=== PATIENT | male | born 1985 | race Hispanic/Latino ===

== ENCOUNTER 2019-05-13 00:06 | Inpatient (IN) | payer OTHER ==
[~2019-05-13] VITALS: Ht 157.5 cm; Wt 90.1 kg
[2019-05-13] MEDS ORDERED: MORPHINE SULFATE 4 MG/1ML SYG ONE (01:07)
[2019-05-13] MEDS ORDERED: KETOROLAC TROMETHAMINE 30MG/ML ONE (01:07)
[2019-05-13] MEDS ORDERED: SODIUM CHLORIDE 0.9% 1000ML 1,000 ML IV ONE (01:09)
[2019-05-13 01:34] LABS: BASOPHILS % (AUTO) 0.4 % (0.0-5.0); EOSINOPHILS % (AUTO) 0.8 % (0.0-8.0); HEMATOCRIT 41.3 % (42-54); LYMPHOCYTES % (AUTO) 14.5 % (21.0-51.0); MEAN CORPUSCULAR HEMOGLOBIN 29.2 pg (27.0-33.0); MEAN CORPUSCULAR HGB CONC 35.4 g/dL (32.0-36.0); MEAN CORPUSCULAR VOLUME 82.6 fL (79-99); MONOCYTES % (AUTO) 7.3 % (3.0-13.0); NEUTROPHILS % (AUTO) 76.4 % (40.0-77.0); PLATELET COUNT (AUTO) 234 K/uL (130-400); RED CELL DISTRIBUTION WIDTH 12.3 % (11.0-15.5); WHITE BLOOD COUNT (AUTO) 18.5 K/uL (4.8-10.8)
[2019-05-13 01:48] LABS: CREATININE 1.2 mg/dL (0.5-1.5); POTASSIUM 3.4 mmol/L (3.5-5.1)
[2019-05-13] MEDS ORDERED: ZOSYN 3.375GM+NS 50ML 50 ML IV ONE (02:45)
[2019-05-13] MEDS ORDERED: VANCOMYCIN 1GM+NS 250ML 500 ML IV ONE (02:45)
[2019-05-13] MEDS ORDERED: INSULIN HUMULIN R 100 UNIT/ML 3ML ONE (02:46)
[2019-05-13] MEDS ORDERED: GLUCAGON 1MG KIT 1 MG ML IM PRN (03:15)
[2019-05-13] MEDS ORDERED: DEXTROSE 50%-WATER 50 ML DISP.SYRIN IV PRN (03:15)
[2019-05-13] MEDS ORDERED: ACETAMINOPHEN 325 MG TAB PO PRN (03:15)
[2019-05-13] MEDS ORDERED: ONDANSETRON HCL 4 MG/2 ML VIAL IVP PRN (03:15)
[2019-05-13] MEDS ORDERED: VANCOMYCIN PROTOCOL PER PHARMACY IV SCH (03:15)
[2019-05-13] MEDS ORDERED: VANCOMYCIN IV SCH (03:30)
[2019-05-13] MEDS ORDERED: SODIUM CHLORIDE 0.9% IV SCH (03:30)
[2019-05-13] MEDS ORDERED: ACETAMINOPHEN 325 MG TAB ONE (03:50)
[2019-05-13 03:58] VITALS: BP 111/82
--- NOTE | 2019-05-13 04:00 | NUR ---
Admission note: Admitted to floor per stretcher from ED. Pt. fully awake and responsive. Placed in bed comfortably. VS checked and recorded. Physical assessment done. ( See CPOE flow chart for full assessment). Oriented to room and used of call light. Policies and procedures explained. Agreed and verbalized understanding. Has IV site to RFA # 20 gauge with Vancomycin 1.5 gm at a rate of 200 ml/hr via dial flow- patent and intact. Photo of the wound taken and attached to chart. Denies feeling of pain at this time. Verbalized pain felt when he starts to ambulate. Home meds list to bring later by spouse. Plan of care initiated. Monitored for any unusual changes. Needs attended and cared for. Endorsed accordingly to Day shift RN.
[2019-05-13] MEDS ORDERED: ZOSYN 3.375GM+NS 50ML 50 ML IV SCH (05:00)
[2019-05-13] MEDS: INSULIN R PO SS1 SQ SCH ×4 (06:45→20:32)
[2019-05-13 08:00] VITALS: BP 100/58
[2019-05-13] MEDS: FAMOTIDINE 20MG TAB 20 MG TAB PO SCH ×2 (09:16→20:02)
[2019-05-13] MEDS: ZOSYN 3.375GM+NS 50ML 50 ML IV SCH ×2 (09:23→17:25)
[2019-05-13] MEDS: ACETAMINOPHEN 325 MG TAB PO PRN ×3 (09:33→23:11)
[2019-05-13 12:00] VITALS: BP 106/72
[2019-05-13] MEDS ORDERED: COMPOUND IV REFRIGERATED 1 EACH IVSOLN MISC PRN (12:30)
[2019-05-13] MEDS: SODIUM CHLORIDE 0.9% IV SCH (15:01)
[2019-05-13] MEDS: VANCOMYCIN IV SCH (15:01)
[2019-05-13 16:00] VITALS: BP 117/74
--- NOTE | 2019-05-13 16:22 | NUR ---
RD Notification Pt admitted with Cellulitis to both legs. [facility] Diabetes. Pt with elevated BG levels (305).Pt pending I&D procedure. Pt in shower at time of visit. Pending diabetes nutrition education. Recommend 60gm CCD secondary to elevated BG levels. Pt with Obesity class II (BMI 36.0). RD to continue to monitor. Please notify RD as additional nutrition concerns arise. Thank you. Addendum: 05/13/19 at [address] RD Amended: Links added.
[2019-05-13 19:25] VITALS: BP 98/54
[2019-05-13] MEDS: HYDROMORPHONE HCL 0.5 MG/0.5 ML ML IVP PRN (20:09)
[2019-05-14] VITALS (29 sets, daily range): BP systolic 95–139; BP diastolic 47–88
[2019-05-14] MEDS: ZOSYN 3.375GM+NS 50ML 50 ML IV SCH ×3 (01:15→19:45)
[2019-05-14] MEDS: VANCOMYCIN IV SCH (03:30)
[2019-05-14] MEDS: SODIUM CHLORIDE 0.9% IV SCH (03:30)
[2019-05-14] MEDS: HYDROMORPHONE HCL 0.5 MG/0.5 ML ML IVP PRN ×2 (03:30→20:55)
[2019-05-14 05:40] LABS: HEMATOCRIT 33.7 % (42-54); MEAN CORPUSCULAR HEMOGLOBIN 29.4 pg (27.0-33.0); MEAN CORPUSCULAR HGB CONC 35.3 g/dL (32.0-36.0); MEAN CORPUSCULAR VOLUME 83.2 fL (79-99); PLATELET COUNT (AUTO) 213 K/uL (130-400); RED BLOOD CELL COUNT(AUTO) 4.05 MIL/uL (4.50-6.20); RED CELL DISTRIBUTION WIDTH 12.6 % (11.0-15.5); WHITE BLOOD COUNT (AUTO) 14.1 K/uL (4.8-10.8)
[2019-05-14 05:44] LABS: HEMOGLOBIN A1C 6.4 % (4.0-6.0)
[2019-05-14 05:50] LABS: ALBUMIN 2.2 g/dL (3.5-5.0); BILIRUBIN,TOTAL 0.5 mg/dL (0.2-1.0); CREATININE 1.2 mg/dL (0.5-1.5); MAGNESIUM 1.5 mg/dL (1.80-2.40); POTASSIUM 3.5 mmol/L (3.5-5.1); THYROID STIMULATING HORMONE 0.71 uIU/mL (0.36-3.74); TOTAL PROTEIN, SERUM 6.1 g/dL (6.0-8.3)
[2019-05-14] MEDS: INSULIN R PO SS1 SQ SCH ×4 (06:07→20:54)
[2019-05-14 06:18] LABS: BAND NEUTROPHILS % (MANUAL) 7 % (0-2); EOSINOPHILS % (MANUAL) 1 % (1-6); LYMPHOCYTES % (MANUAL) 20 % (22-44); MAN.DIFF COMMENT-IMPRESSION MANUAL DIFFERENTIAL; MONOCYTES % (MANUAL) 9 % (2-9); PLATELET MORPHOLOGY COMMENT ADEQUATE; REACTIVE LYMPHOCYTES 2 % (0-0); SEGMENTED NEUTROPHILS % 61 % (40-70)
[2019-05-14] MEDS: FAMOTIDINE 20MG TAB 20 MG TAB PO SCH ×2 (09:16→20:38)
[2019-05-14] MEDS ORDERED: SODIUM CHLORIDE 0.9% 1000ML 1,000 ML IV ONE (12:58)
--- NOTE | 2019-05-14 13:09 | NUR ---
potential for infection: shaved left axillary area per shadi colón.
[2019-05-14] MEDS ORDERED: MIDAZOLAM HCL 1 MG/ML 2ML VIAL ONE (13:16)
[2019-05-14] MEDS ORDERED: FENTANYL CITRATE PF 50 MCG/1 ML 2ML VIAL ONE ×2 (13:16→15:58)
[2019-05-14] MEDS ORDERED: LIDOCAINE PF 2% 5ML ABBOJECT ONE (13:16)
[2019-05-14] MEDS ORDERED: PROPOFOL 10 MG/ML 20ML VIAL IV ONE (13:16)
[2019-05-14] MEDS ORDERED: ROPIVACAINE 0.5% 5MG/ML 30ML IJ ONE (14:03)
[2019-05-14] MEDS ORDERED: KETOROLAC TROMETHAMINE 30MG/ML ONE ×2 (15:58→16:11)
--- NOTE | 2019-05-14 16:58 | NUR ---
unable to assess SW attempted to complete assessment with patient but he was in a procedure. SW will follow up at a later time.
[2019-05-14] MEDS: VANCOMYCIN 1.25 GM in SODIUM CHLORIDE 0.9% 250 ML IV SCH (17:05)
[2019-05-14] MEDS ORDERED: GLYB5TAB8 PO (22:21)
[2019-05-14] MEDS ORDERED: METF-444 PO (22:23)
[2019-05-14] MEDS ORDERED: LISI10TA7 PO (22:23)
[2019-05-15] MEDS: ACETAMINOPHEN 325 MG TAB PO PRN (01:47)
[2019-05-15] MEDS: ZOSYN 3.375GM+NS 50ML 50 ML IV SCH ×3 (01:48→17:44)
[2019-05-15] MEDS: HYDROMORPHONE HCL 0.5 MG/0.5 ML ML IVP PRN ×3 (03:02→17:57)
[2019-05-15 03:16] LABS: HEMATOCRIT 32.3 % (42-54); MEAN CORPUSCULAR HEMOGLOBIN 29.1 pg (27.0-33.0); MEAN CORPUSCULAR HGB CONC 34.4 g/dL (32.0-36.0); MEAN CORPUSCULAR VOLUME 84.6 fL (79-99); PLATELET COUNT (AUTO) 214 K/uL (130-400); RED BLOOD CELL COUNT(AUTO) 3.82 MIL/uL (4.50-6.20); RED CELL DISTRIBUTION WIDTH 12.3 % (11.0-15.5); WHITE BLOOD COUNT (AUTO) 9.5 K/uL (4.8-10.8)
[2019-05-15 03:24] LABS: CREATININE 1.2 mg/dL (0.5-1.5); POTASSIUM 3.3 mmol/L (3.5-5.1)
[2019-05-15 03:39] LABS: BAND NEUTROPHILS % (MANUAL) 7 % (0-2); BASOPHILS % (MANUAL) 1 % (0-2); EOSINOPHILS % (MANUAL) 2 % (1-6); LYMPHOCYTES % (MANUAL) 26 % (22-44); MAN.DIFF COMMENT-IMPRESSION MANUAL DIFFERENTIAL; MONOCYTES % (MANUAL) 6 % (2-9); SEGMENTED NEUTROPHILS % 58 % (40-70)
[2019-05-15 04:00] VITALS: BP 112/73
[2019-05-15] MEDS: VANCOMYCIN 1.25 GM in SODIUM CHLORIDE 0.9% 250 ML IV SCH ×2 (04:25→15:34)
[2019-05-15] MEDS: INSULIN R PO SS1 SQ SCH ×4 (06:04→21:27)
[2019-05-15 08:04] VITALS: BP 106/66
[2019-05-15] MEDS: FAMOTIDINE 20MG TAB 20 MG TAB PO SCH ×2 (09:25→21:20)
--- NOTE | 2019-05-15 12:30 | NUR ---
PT STATES PAIN IS NOT CONTROLLED PA MANSOOR NOTIFIED ORDERS ENTERED. STATES PATIENT NEEDS 1 OR 2 MORE DAYS OF ANTIBIOTICS DUE TO SWELLING AND PAIN.
--- NOTE | 2019-05-15 12:36 | NUR ---
INITIAL Patient lives alone. Emergency contact is mother, Nishi Sams, [phone]. No home services or DME. Patient is able to complete ADL's independently and drives. 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 PCP is Dr. Hyman. Pharmacy is [facility] in [place]. DCP is home. Addendum: 05/15/19 at 1238 by JULIO LOPES SS Amended: Links added.
[2019-05-15 12:37] VITALS: BP 116/82
[2019-05-15] MEDS: TRAMADOL HCL 50 MG TABLET PO PRN (15:37)
[2019-05-15 16:51] VITALS: BP 125/73
--- NOTE | 2019-05-15 18:35 | NUR ---
dressings to bilateral thighs changed could not change axillary due to severe pain. will notify next shift pending to change for tonight. Addendum: 05/15/19 at 1838 by WESTON CORTES RN RN using wet to dry and sterile technique.
[2019-05-15 19:53] VITALS: BP 128/74
[2019-05-15] MEDS ORDERED: POTASSIUM CHLORIDE 20 MEQ ERTAB PO SCH (20:00)
[2019-05-15] MEDS ORDERED: MAGNESIUM 2GM PREMIX 50ML 50 ML IV SCH (21:00)
[2019-05-15 23:20] VITALS: BP 120/68
[2019-05-16] MEDS: HYDROMORPHONE HCL 0.5 MG/0.5 ML ML IVP PRN (00:35)
[2019-05-16] MEDS: ZOSYN 3.375GM+NS 50ML 50 ML IV SCH ×3 (01:06→19:20)
[2019-05-16 03:48] LABS: MEAN CORPUSCULAR HEMOGLOBIN 28.9 pg (27.0-33.0); MEAN CORPUSCULAR HGB CONC 33.8 g/dL (32.0-36.0); MEAN CORPUSCULAR VOLUME 85.6 fL (79-99); PLATELET COUNT (AUTO) 241 K/uL (130-400); RED BLOOD CELL COUNT(AUTO) 3.74 MIL/uL (4.50-6.20); RED CELL DISTRIBUTION WIDTH 12.2 % (11.0-15.5)
[2019-05-16 04:00] VITALS: BP 100/57
[2019-05-16 04:00] LABS: CREATININE 1.2 mg/dL (0.5-1.5); MAGNESIUM 2.3 mg/dL (1.80-2.40); POTASSIUM 3.7 mmol/L (3.5-5.1)
[2019-05-16] MEDS: VANCOMYCIN 1.25 GM in SODIUM CHLORIDE 0.9% 250 ML IV SCH ×2 (04:00→16:41)
[2019-05-16] MEDS: INSULIN R PO SS1 SQ SCH ×4 (06:38→21:10)
[2019-05-16 08:15] VITALS: BP 123/77
[2019-05-16] MEDS: FAMOTIDINE 20MG TAB 20 MG TAB PO SCH ×2 (08:39→21:06)
[2019-05-16] MEDS: TRAMADOL HCL 50 MG TABLET PO PRN ×3 (08:39→21:07)
[2019-05-16 11:14] VITALS: BP 104/70
--- NOTE | 2019-05-16 11:25 | NUR ---
Nutrition Follow-up: Pt. S/P I&D L7R Thigh/L Axillary monor abscess(05/14/2019). Pt. on 60gm CCD diet, double pro/Veg portions with good p.o. intake, as per pt. Labs reviewed(Alb 2.2, BG 201). Spoke with pt. regarding protein supplementation and pt. agreed to try. LBM: 05/15/2019. Pt. educated on Diabetic diet and provided with education material. Pt. verbalized understanding. Recommendations: 1) Continue current diet. 2) Rec. 30ml ProMod TID with meals. 3) Diabetic diet education given to patient. 4) Continue to monitor pt's nutritional status. 5) Consult RD as nutrition concerns arise. Addendum: 05/16/19 at [address] Amended: Links added.
--- NOTE | 2019-05-16 16:00 | NUR ---
SPOKE TO DR. HARDING, PT , RN AT BEDSIDE RE DSG CHANGES. PT HAS [employer] INSURANCE, NOT ABLE TO VERIFY BENEFITS FOR HH ON THE WEEKEND. TWO OPTIONS- TEACH FMA[employer] TO DO DRESSING, DC HOME SATURDAY TO FOLLOW WITH PRIMARY MD ON SATURDAY, OR DC SATURDAY AFTER BENEFITS VERIFIED. POSSIBLE THIS INSURANCE REQUIRES PMD TO REFER. CM TO FOLLOW. UNABLE TO SET UP TODAY Addendum: 05/17/19 at 0804 by KILLIAN KENNEY RN CM Amended: Links added.
[2019-05-16 16:26] VITALS: BP 129/53
[2019-05-16] MEDS: METFORMIN HCL 500 MG TABLET PO SCH (16:41)
[2019-05-16] MEDS: ACETAMINOPHEN-CODEINE 300/30MG TAB PO PRN ×2 (16:52→22:15)
[2019-05-16 19:42] VITALS: BP 102/58
[2019-05-16] MEDS: GLYBURIDE 5 MG TABLET PO SCH (21:06)
[2019-05-16 23:30] VITALS: BP 110/68
[2019-05-17] MEDS: ZOSYN 3.375GM+NS 50ML 50 ML IV SCH ×3 (01:56→18:12)
[2019-05-17 03:27] VITALS: BP 102/66
[2019-05-17] MEDS: TRAMADOL HCL 50 MG TABLET PO PRN ×3 (05:56→20:28)
[2019-05-17] MEDS: VANCOMYCIN 1.25 GM in SODIUM CHLORIDE 0.9% 250 ML IV SCH ×2 (05:56→15:47)
[2019-05-17] MEDS: INSULIN R PO SS1 SQ SCH ×4 (06:13→20:27)
[2019-05-17] MEDS: FAMOTIDINE 20MG TAB 20 MG TAB PO SCH ×2 (08:17→20:28)
[2019-05-17] MEDS: METFORMIN HCL 500 MG TABLET PO SCH ×2 (08:17→18:12)
[2019-05-17] MEDS: LISINOPRIL 10 MG TABLET PO SCH (08:17)
[2019-05-17] MEDS: GLYBURIDE 5 MG TABLET PO SCH ×2 (08:17→20:28)
[2019-05-17 08:55] VITALS: BP 104/57
[2019-05-17 11:43] VITALS: BP 124/82
[2019-05-17 16:09] VITALS: BP 119/68
[2019-05-17 20:04] VITALS: BP 141/78
--- NOTE | 2019-05-17 21:00 | NUR ---
DRESSING CHANGE PATIENT AWAKE AND ALERT, MEDICATED PER MARS BEFORE DRESSING CHANGE. DRESSING CHANGE DONE PER MD ORDERS TO BILATERAL THIGHS. SPOUSE AT BEDSIDE EDUCATED ON DRESSING CHANGE. SPOUSE VERBALIZED UNDERSTANDING VIA TEACH BACK. NO QUESTIONS OR CONCERNS VOICED AT THIS TIME. PATIENT TOLERATED WELL. NO SIGNS OF DISTRESS NOTED. CALL LIGHT WITHIN REACH. WILL CONTINUE TO BE OBSERVED. Addendum: 05/18/19 at 0615 by DONTRELL SWENSON RN RN Amended: Links added.
[2019-05-17 23:21] VITALS: BP 129/88
[2019-05-18] MEDS: ZOSYN 3.375GM+NS 50ML 50 ML IV SCH ×3 (01:54→18:13)
[2019-05-18] MEDS: ACETAMINOPHEN-CODEINE 300/30MG TAB PO PRN (02:00)
[2019-05-18 04:44] VITALS: BP 119/79
[2019-05-18] MEDS: VANCOMYCIN 1.25 GM in SODIUM CHLORIDE 0.9% 250 ML IV SCH ×2 (04:52→18:16)
[2019-05-18] MEDS: INSULIN R PO SS1 SQ SCH ×4 (05:17→21:00)
[2019-05-18 05:38] LABS: HEMATOCRIT 34.5 % (42-54); MEAN CORPUSCULAR HEMOGLOBIN 28.9 pg (27.0-33.0); MEAN CORPUSCULAR HGB CONC 33.6 g/dL (32.0-36.0); PLATELET COUNT (AUTO) 277 K/uL (130-400); RED BLOOD CELL COUNT(AUTO) 4.01 MIL/uL (4.50-6.20); RED CELL DISTRIBUTION WIDTH 12.4 % (11.0-15.5); WHITE BLOOD COUNT (AUTO) 7.9 K/uL (4.8-10.8)
[2019-05-18 06:48] LABS: CREATININE 1.1 mg/dL (0.5-1.5); POTASSIUM 3.4 mmol/L (3.5-5.1)
[2019-05-18 08:00] VITALS: BP 106/68
[2019-05-18] MEDS: GLYBURIDE 5 MG TABLET PO SCH ×2 (09:20→21:13)
[2019-05-18] MEDS: FAMOTIDINE 20MG TAB 20 MG TAB PO SCH ×2 (09:20→21:12)
[2019-05-18] MEDS: LISINOPRIL 10 MG TABLET PO SCH (09:20)
[2019-05-18] MEDS: METFORMIN HCL 500 MG TABLET PO SCH ×2 (09:23→18:12)
[2019-05-18 11:53] VITALS: BP 128/62
--- NOTE | 2019-05-18 12:00 | NUR ---
CM NOTE REFERRAL FOR HOME HEALTH FOR WOUND CARE. [employer] CONTACTED THRU EMAIL PER WEBSITE REQUESTING HOME HEALTH IN NETWORK, PENDING RETURN EMAIL. MEET WITH PATIENT IN ROOM, PER PATIENT, HAS LEARNED WOUND CARE AND IS COMFORTABLE WITH FAMILY PERFORMING WOUND CARE. WOUND CARE TAUGHT TO SPOUSE BY DONTRELL LUNDBERG, SPOUSE VERBALIZED UNDERSTANDING OF DRESSING CHANGES. MOTHER AT BEDSIDE, STATES SHE CAN ALSO LEARN AND PERFORM WOUND CARE ORDERED. PER PATIENT, HAS A COUSIN WHO IS AN SERVICE ASSOCIATE THAT HAS ALSO VOLUNTEERED TO PERFORM WOUND CARE. ANSWERED QUESTIONS REGARDING WOUND CARE SUPPLIES CALL PLACED TO DR. ARECHIGA TO INFORM HER OF WOUND CARE TO BE DONE BY FAMILY, PER MD, OK FOR FAMILY TO DO WOUND CARE LONG THEY ARE TAUGHT. PER MD, PATIENT NOT CLEARED TO RETURNTO WORK AND WILL FOLLOW UP IN OFFICE WHERE SUBJECT WILL BE DISCUSSED, THIS REPORTED TO PATIENT, VERBALIZED UNDERSTANDING. PENDING 2DECHO ORDERED BY DR. HARDING. DISPOSITION HOME WITH FAMILY TO DO WOUND CARE.
[2019-05-18 16:00] VITALS: BP 127/72
--- NOTE | 2019-05-18 18:00 | NUR ---
NOTE PATIENT HAS HAD STABLE DAY. CONTINUE WITH IV ABX. 2 D ECHO WAS DONE AND WE ARE PENDING PATIENT TO HAVE RESULTS TO R/O ENDOCARDITIS. DR SUTTON MADE ROUNDS FOR DR ARECHIGA AND LEFT DC ABX TO DR MOYER WHO IS ASSUMING PRIMARY CARE FOR HIM. ECHO REPORT IS OUT AND SEEMS HE WILL NEED ABDELRAHMAN PER RECOMMENDATIONS FOR VEGETATION CANNOT BE RULED OUT. DR MOYER PAGED. WILL INFORM HIM AND GET ORDER.
--- NOTE | 2019-05-18 19:34 | NUR ---
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 SPOKE TO DR ANDRADE REGARDING RESULTS AND HE SAID TO CONTINUE ABX AND NOTIFY DR HARDING IN AM.
[2019-05-18 20:00] VITALS: BP 131/84
[2019-05-18] MEDS: TRAMADOL HCL 50 MG TABLET PO PRN (21:19)
[2019-05-18] MEDS ORDERED: VANCOMYCIN 1.25 GM in SODIUM CHLORIDE 0.9% 250 ML IV SCH (22:00)
[2019-05-18] MEDS ORDERED: VANCOMYCIN 1.5 GM in SODIUM CHLORIDE 0.9% 250 ML IV SCH (22:15)
--- NOTE | 2019-05-18 23:00 | NUR ---
DRESSING CHANGE ( WET TO DRY) Procedure for wet to dry saline dressing change explained to pt. Pt. is agreeable and verbalizes understanding. Medicated with Tramadol 50mg po prn for pain as ordered prior to dressing change. Dressing removed to left axilla and both legs. Scant amount of blood noted. No foul odor noted. Wound has pink granulation tissue present on borders. Wet to dry 4x4's applied to wound using aseptic technique pr MD orders. Patient tolerated procedure well.
[2019-05-18] MEDS ORDERED: VANCOMYCIN PROTOCOL PER PHARMACY IV SCH (23:45)
[2019-05-19] VITALS (13 sets, daily range): BP systolic 101–139; BP diastolic 65–84
[2019-05-19] MEDS: ZOSYN 3.375GM+NS 50ML 50 ML IV SCH ×3 (02:37→21:36)
[2019-05-19 05:47] LABS: HEMATOCRIT 36.4 % (42-54); MEAN CORPUSCULAR HEMOGLOBIN 28.7 pg (27.0-33.0); MEAN CORPUSCULAR HGB CONC 33.8 g/dL (32.0-36.0); MEAN CORPUSCULAR VOLUME 84.8 fL (79-99); PLATELET COUNT (AUTO) 281 K/uL (130-400); RED BLOOD CELL COUNT(AUTO) 4.29 MIL/uL (4.50-6.20); RED CELL DISTRIBUTION WIDTH 12.3 % (11.0-15.5); WHITE BLOOD COUNT (AUTO) 7.1 K/uL (4.8-10.8)
[2019-05-19] MEDS: INSULIN R PO SS1 SQ SCH ×4 (06:21→21:00)
[2019-05-19] MEDS: VANCOMYCIN 1.5 GM in SODIUM CHLORIDE 0.9% 250 ML IV SCH ×2 (06:22→20:18)
[2019-05-19 06:25] LABS: CREATININE 1.2 mg/dL (0.5-1.5); POTASSIUM 3.2 mmol/L (3.5-5.1)
[2019-05-19] MEDS: METFORMIN HCL 500 MG TABLET PO SCH ×2 (08:00→20:18)
[2019-05-19] MEDS: FAMOTIDINE 20MG TAB 20 MG TAB PO SCH ×2 (09:00→22:00)
[2019-05-19] MEDS: GLYBURIDE 5 MG TABLET PO SCH ×2 (09:00→22:01)
[2019-05-19] MEDS ORDERED: LIDOCAINE HCL 2% VISCOUS 15 ML UDCUP ONE (10:50)
[2019-05-19] MEDS ORDERED: FENTANYL CITRATE PF 50 MCG/1 ML 2ML VIAL ONE (10:51)
[2019-05-19] MEDS ORDERED: MIDAZOLAM HCL 5 MG/ML 2ML VIAL IV ONE (10:51)
--- NOTE | 2019-05-19 12:00 | NUR ---
ABDELRAHMAN PROCEDURE PERFORMED BY DR Geoffrey BERKOWITZ AND TOLERATED PROCEDURE. END OF PROCEDURE AT 1125. PATIENT RECOVERED IN PROCEDURE ROOM. REPORT GIVEN TO Geoffrey BENTLEY LVN, RN AND PATIENT TRANSPORTED TO [facility] VIA BED AT 1200. DROWSY AND RESPONDS TO STIMULI WITH NO C/O PAIN.
--- NOTE | 2019-05-19 13:00 | NUR ---
S/P PT ALERT AWAKE AND ORIENTED. VITALS STABLE. PT IN BED BED RAILS X2. CALL LIGHT IN REACH BED LOCKED AND LOW. WILL CONTINUE TO MONITOR.
[2019-05-19] MEDS: TRAMADOL HCL 50 MG TABLET PO PRN (14:29)
--- NOTE | 2019-05-19 15:00 | NUR ---
WET TO DRY DRESSING CHANGES TO WOUNDS PER MD ORDER . WOUND BED REMAINS RED AND MOIST . CLEANED WITH NS , PLACED ONE WET GAUZE 4X4 PER WOUND, COVERED WITH DRY GAUZE , SECURED WITH TAPE .PATIENT TOLERATED WELL
[2019-05-19] MEDS: HYDROMORPHONE HCL 0.5 MG/0.5 ML ML IVP PRN (15:54)
[2019-05-19] MEDS: LISINOPRIL 10 MG TABLET PO SCH (15:55)
--- NOTE | 2019-05-19 20:41 | NUR ---
dr spring paged regarding potassium at 3.2 . pending call back
--- NOTE | 2019-05-19 20:54 | NUR ---
Dr. Saleh made a return call with an order to place pt on potassium protocol.
[2019-05-19] MEDS ORDERED: POTASSIUM CHLORIDE 20 MEQ ERTAB PO PRN (21:15)
[2019-05-19] MEDS ORDERED: POTASSIUM CHLORIDE 10% ELIXIR 20 MEQ/15 ML UDCUP PO PRN (21:15)
[2019-05-19] MEDS ORDERED: POTASSIUM CHLORIDE 20MEQ/100ML 100 ML IV PRN (21:15)
[2019-05-19] MEDS ORDERED: LIDOCAINE HCL-MPF 1% 2ML VIAL IV PRN (21:15)
[2019-05-19] MEDS: ACETAMINOPHEN-CODEINE 300/30MG TAB PO PRN (22:19)
[2019-05-20] VITALS: BP 113/72
[2019-05-20 04:00] VITALS: BP 111/72
[2019-05-20] MEDS: ZOSYN 3.375GM+NS 50ML 50 ML IV SCH ×2 (04:14→12:49)
[2019-05-20 05:25] LABS: HEMATOCRIT 40.4 % (42-54); MEAN CORPUSCULAR HEMOGLOBIN 29.1 pg (27.0-33.0); MEAN CORPUSCULAR HGB CONC 33.7 g/dL (32.0-36.0); MEAN CORPUSCULAR VOLUME 86.3 fL (79-99); PLATELET COUNT (AUTO) 383 K/uL (130-400); RED BLOOD CELL COUNT(AUTO) 4.68 MIL/uL (4.50-6.20); RED CELL DISTRIBUTION WIDTH 12.4 % (11.0-15.5); WHITE BLOOD COUNT (AUTO) 9.9 K/uL (4.8-10.8)
[2019-05-20 05:48] LABS: CREATININE 1.3 mg/dL (0.5-1.5); POTASSIUM 3.7 mmol/L (3.5-5.1)
[2019-05-20] MEDS: HYDROMORPHONE HCL 0.5 MG/0.5 ML ML IVP PRN ×2 (06:02→12:41)
--- NOTE | 2019-05-20 06:25 | NUR ---
DRESSING CHANGE ( WET TO DRY) Procedure for wet to dry saline dressing change explained to pt. Pt. is agreeable and verbalizes understanding. Medicated with Dilaudid 0.5mg IV prn for pain as ordered prior to dressing change. Dressing removed to left axilla and both legs. Scant amount of blood noted. No foul odor noted. Wound has pink granulation tissue present on borders. Wet to dry 4x4's applied to wound using aseptic technique per MD orders. Patient tolerated procedure well.
[2019-05-20] MEDS: VANCOMYCIN 1.5 GM in SODIUM CHLORIDE 0.9% 250 ML IV SCH (06:39)
[2019-05-20] MEDS: INSULIN R PO SS1 SQ SCH ×3 (07:30→16:30)
[2019-05-20 08:09] VITALS: BP 125/77
[2019-05-20] MEDS: METFORMIN HCL 500 MG TABLET PO SCH ×2 (08:36→17:36)
[2019-05-20] MEDS: LISINOPRIL 10 MG TABLET PO SCH (08:37)
[2019-05-20] MEDS: GLYBURIDE 5 MG TABLET PO SCH (08:37)
[2019-05-20] MEDS: FAMOTIDINE 20MG TAB 20 MG TAB PO SCH (08:37)
[2019-05-20 11:20] VITALS: BP 120/71
[2019-05-20 16:15] VITALS: BP 137/77
[2019-05-20] MEDS: TRAMADOL HCL 50 MG TABLET PO PRN (17:36)
--- NOTE | 2019-05-20 17:45 | NUR ---
FAMILY INSTRUCTED DRESSING CHANGE WET TO DRY DONE ON ALL 3 WOUNDS WITH FAMILY HELPING AND PICTURE TAKING. SUPPLIES GIVEN FOR DRESSING CHANGES AT HOME
--- NOTE | 2019-05-20 18:16 | NUR ---
DISCHARGE INSTRUCTED FOR DISCHARGE GIVEN TO PATIENT EXPLAINED NEW MEDICATIONS, AND WRITTEN RX AND INSTRUCTIONS ALSO GIVEN. PATIENT VERBALIZED UNDERSTANDING.
== END 2019-05-20 18:18 | disposition home or self-care (01) | DRG 872 ==
LOC: EDH 00:06 → EDHIP 02:33 → 3AH 03:08
PROVIDERS: ADMIT Internal Medicine Nephrology; ATTEND Internal Medicine Nephrology
PROC: 0Y9C0ZZ Drainage of Right Upper Leg, Open Approach (ICD-10-PCS; 2019-05-14)
PROC: 0X950ZZ Drainage of Left Axilla, Open Approach (ICD-10-PCS; 2019-05-14)
PROC: 0Y9D0ZZ Drainage of Left Upper Leg, Open Approach (ICD-10-PCS; principal; 2019-05-14 16:13)
PROC: B24BZZ4 Ultrasonography of Heart with Aorta, Transesophageal (ICD-10-PCS; 2019-05-19)
DX: A41.9 Sepsis, unspecified organism (principal); E87.1 Hypo-osmolality and hyponatremia; Q23.1 Congenital insufficiency of aortic valve; L02.416 Cutaneous abscess of left lower limb; L02.412 Cutaneous abscess of left axilla; L03.116 Cellulitis of left lower limb; L03.115 Cellulitis of right lower limb; L02.415 Cutaneous abscess of right lower limb; E11.21 Type 2 diabetes mellitus with diabetic nephropathy; E11.51 Type 2 diabetes mellitus with diabetic peripheral angiopathy without gangrene; I10 Essential (primary) hypertension; D89.9 Disorder involving the immune mechanism, unspecified; E66.9 Obesity, unspecified; E87.6 Hypokalemia; N28.9 Disorder of kidney and ureter, unspecified; B95.61 Methicillin susceptible Staphylococcus aureus infection as the cause of diseases classified elsewhere; Z83.3 Family history of diabetes mellitus; Z91.19 Patient's noncompliance with other medical treatment and regimen; Z68.36 Body mass index [BMI] 36.0-36.9, adult
CPT/HCPCS: 36415; 73552; 80048; 80053; 80202; 82948; 83036; 83605; 83735; 84443; 84550; 85025; 85027; 87040; 87070; 87076; 87077; 87186; 87205; 93306; 93313; 99152; 99153; 99291; G0378; J1170; J1815; J1885; J2001; J2250; J2270; J2543; J2704; J2795; J3010; J3370; J3475; J7030; J7040

== ENCOUNTER 2022-06-23 01:01 | Inpatient (IN) | payer OTHER ==
[~2022-06-23] VITALS: Ht 157.5 cm; Wt 85.7 kg
[~2022-06-23 01:01] MED LIST: GLYB5TAB8 PO; LISI10TA24 PO; METF-444 PO
[2022-06-23] MEDS ORDERED: CHLORPROMAZINE HCL 25 MG/ML 1ML AMP IV SCH (01:30)
[2022-06-23] MEDS ORDERED: FAMOTIDINE 20MG VIAL IV ONE (01:30)
[2022-06-23] MEDS ORDERED: 0.9%NACL 1000ML 1,000 ML IV ONE (01:30)
[2022-06-23 01:44] LABS: BASOPHILS % (AUTO) 0.2 % (0.0-5.0); EOSINOPHILS % (AUTO) 0.1 % (0.0-8.0); HEMATOCRIT 45.2 % (42-54); LYMPHOCYTES % (AUTO) 9.1 % (21.0-51.0); MEAN CORPUSCULAR HEMOGLOBIN 29.7 pg (27.0-33.0); MEAN CORPUSCULAR HGB CONC 36.5 g/dL (32.0-36.0); MEAN CORPUSCULAR VOLUME 81.3 fL (79-99); MONOCYTES % (AUTO) 4.2 % (3.0-13.0); NEUTROPHILS % (AUTO) 85.7 % (40.0-77.0); PLATELET COUNT (AUTO) 215 K/uL (130-400); RED BLOOD CELL COUNT(AUTO) 5.56 MIL/uL (4.50-6.20); WHITE BLOOD COUNT (AUTO) 12.2 K/uL (4.8-10.8)
[2022-06-23 02:18] LABS: ALBUMIN 3.7 g/dL (3.5-5.0); CREATININE 1.5 mg/dL (0.5-1.5); POTASSIUM 5.1 mmol/L (3.5-5.1); TOTAL PROTEIN, SERUM 6.8 g/dL (6.0-8.3)
[2022-06-23] MEDS ORDERED: ASPIRIN 81MG CHEW TAB PO ONE (02:30)
[2022-06-23] MEDS ORDERED: HEPARIN 5,000 UNIT VIAL ONE (02:36)
[2022-06-23] MEDS ORDERED: CLOPIDOGREL 300MG TAB ONE (02:36)
[2022-06-23] MEDS ORDERED: HEPARIN 25,000 UNITS/250ML D5W 250 ML IV ONE (02:37)
[2022-06-23 02:57] LABS: INR 0.93 (0.85-1.15); PROTHROMBIN TIME 9.5 SEC (9.6-11.6)
[2022-06-23 02:58] LABS: PARTIAL THROMBOPLASTIN TIME 22.5 SEC (26.3-35.5)
[2022-06-23] MEDS ORDERED: ACETAMINOPHEN 325 MG TAB PO PRN (03:00)
[2022-06-23] MEDS ORDERED: ONDANSETRON 4MG INJ IVP PRN (03:00)
[2022-06-23] MEDS ORDERED: INSULIN HUMULIN R 100 UNIT/ML 3ML SQ PRN (03:00)
[2022-06-23] MEDS ORDERED: CLOPIDOGREL 300MG TAB PO ONE (03:00)
[2022-06-23] MEDS ORDERED: MORPHINE 2 MG SYG IVP PRN (03:00)
[2022-06-23] MEDS ORDERED: 0.9%NACL 1000ML 1,000 ML IV SCH (03:00)
[2022-06-23] MEDS ORDERED: HEPARIN 5,000 UNIT VIAL IV SCH (03:00)
[2022-06-23] MEDS ORDERED: INSULIN HUMULIN R 100 UNIT/ML 3ML SQ ONE (03:00)
[2022-06-23] MEDS ORDERED: HEPARIN 25,000 UNITS/250ML D5W 250 ML IV SCH (03:00)
[2022-06-23 03:05] LABS: APPEARANCE,URINE CLEAR (CLEAR); BILIRUBIN,URINE NEGATIVE (NEGATIVE); COLOR,URINE COLORLESS (YELLOW); GLUCOSE, URINE (UA) >=1000 mg/dL (NEGATIVE); KETONES,URINE 5 mg/dL (NEGATIVE); LEUKOCYTE ESTERASE ,URINE NEGATIVE Leu/uL (NEGATIVE); NITRATE,URINE NEGATIVE (NEGATIVE); OCCULT BLOOD,URINE NEGATIVE (NEGATIVE); PROTEIN,URINE NEGATIVE (NEGATIVE); UROBILINOGEN,URINE 0.2 mg/dL (0.2-1.0)
[2022-06-23 03:06] LABS: RBC,URINE 0-1 /HPF (0-1); WBC,URINE 0-1 /HPF (0-1)
[2022-06-23 03:23] LABS: AMPHET/METH SCREEN,URINE NEGATIVE (NEGATIVE); BARBITURATE SCREEN, URINE NEGATIVE (NEGATIVE); BENZODIAZEPINES SCREEN,URINE NEGATIVE (NEGATIVE); CANNABINOID SCREEN,URINE NEGATIVE (NEGATIVE); COCAINE SCREEN,URINE NEGATIVE (NEGATIVE); OPIATE SCREEN,URINE NEGATIVE (NEGATIVE); PHENCYCLIDINE SCREEN,URINE NEGATIVE (NEGATIVE)
[2022-06-23 07:52] VITALS: BP 133/84
[2022-06-23] MEDS ORDERED: ASPIRIN 81 MG EC TAB PO SCH (09:00)
[2022-06-24] MEDS ORDERED: ENOXAPARIN SODIUM 40 MG/0.4 ML SYRINGE SQ SCH (09:00)
== END 2022-06-23 07:43 | disposition left against medical advice (07) | DRG 282 ==
LOC: EDH 01:01 → EDHIP 02:42
PROVIDERS: ADMIT Internal Medicine Infectious Disease; ATTEND Internal Medicine Infectious Disease
DX: I21.4 Non-ST elevation (NSTEMI) myocardial infarction (principal); E11.9 Type 2 diabetes mellitus without complications; R06.6 Hiccough
CPT/HCPCS: 36415; 80053; 80305; 81001; 82948; 84484; 85025; 85610; 85730; G0378; J1644; J1815; J3490; J7030; Q0161

== ENCOUNTER 2022-12-14 09:52 | Emergency (ER) | payer OTHER ==
[~2022-12-14] VITALS: Ht 157.5 cm; Wt 79.4 kg
[2022-12-14] MEDS ORDERED: SOLU-MEDROL 40MG VIAL IVP ONE (11:30)
[2022-12-14] MEDS ORDERED: DIPH-1242 PO (11:32)
[2022-12-14 12:51] VITALS: BP 125/68; PULSE 79; RESP 16; O2SAT 99
== END 2022-12-14 13:06 | disposition home or self-care (01) ==
LOC: EDH 09:52
DX: T63.441A Toxic effect of venom of bees, accidental (unintentional), initial encounter (principal); T78.40XA Allergy, unspecified, initial encounter; E11.9 Type 2 diabetes mellitus without complications; Z79.52 Long term (current) use of systemic steroids; Z79.84 Long term (current) use of oral hypoglycemic drugs; Z79.899 Other long term (current) drug therapy; X58.XXXA Exposure to other specified factors, initial encounter
CPT/HCPCS: 99283; 96374; J2920

== ENCOUNTER 2023-05-04 07:31 | Emergency (ER) | payer OTHER ==
[~2023-05-04] VITALS: Ht 157.5 cm; Wt 80.3 kg
[~2023-05-04 07:31] MED LIST changes: +DIPH-1242 PO
[2023-05-04 07:56] LABS: BASOPHILS # (AUTO) 0.04 K/uL (0.00-0.20); BASOPHILS % (AUTO) 0.7 % (0.0-5.0); EOSINOPHILS # (AUTO) 0.07 K/uL (0.00-0.70); EOSINOPHILS % (AUTO) 1.2 % (0.0-8.0); HEMATOCRIT 45.9 % (42-54); IMMATURE GRANULOCYTE ABSOLUTE 0.01 K/uL (0-1); LYMPHOCYTES # (AUTO) 1.6 K/uL (1.0-4.8); LYMPHOCYTES % (AUTO) 27.2 % (21.0-51.0); MEAN CORPUSCULAR HEMOGLOBIN 29.5 pg (27.0-33.0); MEAN CORPUSCULAR HGB CONC 36.2 g/dL (32.0-36.0); MEAN CORPUSCULAR VOLUME 81.5 fL (79-99); MONOCYTES # (AUTO) 0.8 K/uL (0.1-1.0); MONOCYTES % (AUTO) 12.6 % (3.0-13.0); NEUTROPHILS # (AUTO) 3.5 K/uL (1.8-7.7); NEUTROPHILS % (AUTO) 58.1 % (40.0-77.0); PLATELET COUNT (AUTO) 179 K/uL (130-400); RED BLOOD CELL COUNT(AUTO) 5.63 MIL/uL (4.50-6.20); RED CELL DISTRIBUTION WIDTH 12.9 % (11.0-15.5)
[2023-05-04 08:23] LABS: ALBUMIN 3.5 g/dL (3.5-5.0); BILIRUBIN,TOTAL 0.5 mg/dL (0.2-1.0); CREATININE 1.1 mg/dL (0.5-1.5); POTASSIUM 3.8 mmol/L (3.5-5.1); TOTAL PROTEIN, SERUM 6.7 g/dL (6.0-8.3)
[2023-05-04] MEDS: METRONIDAZOLE 500 MG TABLET PO SCH (09:21)
[2023-05-04] MEDS: LACTATED RINGERS 1000ML 1,638 ML IV ONE (09:21)
[2023-05-04 09:40] LABS: APPEARANCE,URINE CLEAR (CLEAR); BILIRUBIN,URINE NEGATIVE (NEGATIVE); COLOR,URINE LIGHT-YELLOW (YELLOW); GLUCOSE, URINE (UA) >=1000 mg/dL (NEGATIVE); KETONES,URINE NEGATIVE (NEGATIVE); LEUKOCYTE ESTERASE ,URINE NEGATIVE Leu/uL (NEGATIVE); NITRATE,URINE NEGATIVE (NEGATIVE); OCCULT BLOOD,URINE SMALL (NEGATIVE); PH,URINE 5.5 (5.0-8.0); PROTEIN,URINE NEGATIVE (NEGATIVE); UROBILINOGEN,URINE 0.2 mg/dL (0.2-1.0)
[2023-05-04 10:06] LABS: ADD UA MICROSCOPIC YES
[2023-05-04 10:11] LABS: MUCUS,URINE RARE LPF (None Seen); WBC,URINE 0-1 /HPF (0-1)
[2023-05-04] MEDS: INSULIN HUMULIN R 100 UNIT/ML 3ML SQ ONE (10:47)
[2023-05-04] MEDS ORDERED: CIPR-278 PO (12:07)
[2023-05-04] MEDS ORDERED: METR-172 PO (12:07)
[2023-05-04 12:30] VITALS: BP 130/82; PULSE 79; RESP 18; O2SAT 99
== END 2023-05-04 12:34 | disposition home or self-care (01) ==
LOC: EDH 07:31
DX: A04.9 Bacterial intestinal infection, unspecified (principal); Z79.84 Long term (current) use of oral hypoglycemic drugs; Z79.899 Other long term (current) drug therapy; Z98.890 Other specified postprocedural states
CPT/HCPCS: 99283; 96360; 80053; 83690; 85025; 87046; 87324; 81001; 36415; 83630; 96372; J1815; J7120